=== PATIENT | male | born 1975 | race Caucasian/White ===

== ENCOUNTER → 2016-07-24 08:16 | Outpatient (CLI) | payer OTHER ==
[2015-06-02 12:55] VITALS: BMI 37.7
[~2016-07-24 08:16] MED LIST: CLARITIN-D1 TAB.SR . PO; IBUPROFEN600 MG PO; NAPROSYN500 MG PO; PRILOSEC20 MG PO
[2016-07-24 09:00] LABS: ALBUMIN 4.1 g/dL (3.4-5.0); BILIRUBIN - DIRECT 0.11 mg/dL (0.00-0.30); BILIRUBIN - INDIRECT 0.27 mg/dL (0.00-1.00); BILIRUBIN - TOTAL 0.38 mg/dL (0.2-1.3); PROTEIN - SERUM 7.6 g/dL (6.4-8.2)
== END | disposition home or self-care (01) ==
LOC: D.LAB 08:00 → D.US 08:30
PROVIDERS: Internal Medicine Gastroenterology
DX: K76.0 Fatty (change of) liver, not elsewhere classified (principal)

== ENCOUNTER → 2017-01-19 08:10 | Outpatient (CLI) | payer OTHER ==
[2015-06-02 12:55] VITALS: BMI 37.7
[2017-01-19 10:03] LABS: ALBUMIN 3.9 g/dL (3.4-5.0); BILIRUBIN - DIRECT 0.11 mg/dL (0.00-0.30); BILIRUBIN - INDIRECT 0.39 mg/dL (0.00-1.00); BILIRUBIN - TOTAL 0.5 mg/dL (0.2-1.3); PROTEIN - SERUM 7.4 g/dL (6.4-8.2)
== END | disposition home or self-care (01) ==
LOC: D.US 08:10
PROVIDERS: Internal Medicine Gastroenterology
DX: K76.0 Fatty (change of) liver, not elsewhere classified (principal)